=== PATIENT | male | born 1960 | race Caucasian/White ===

== ENCOUNTER 2016-07-12 17:17 | Inpatient (IN) | payer OTHER ==
--- NOTE | ~2016-07-12 | EKG ---
PATIENT: VALERIY PAZ UNIT #: [id number] Ventricular Rate: 88 BPM Atrial Rate: 88 BPM P-R Interval: 126 ms QRS Duration: 130 ms Q-T Interval: 404 ms QTC Calculation(Bezet): 488 ms P [place]: 69 degrees Calculated R [place]: 59 degrees Calculated T [place]: 46 degrees Diagnosis Line: Normal sinus rhythm Diagnosis Line: Right bundle branch block Diagnosis Line: Nonspecific ST and T wave abnormality Diagnosis Line: Abnormal ECG Diagnosis Line: When compared with ECG of 12-JUL-2016 17:46, Diagnosis Line: Nonspecific T wave abnormality, improved in Diagnosis Line: Inferior leads Diagnosis Line: Nonspecific T wave abnormality has replaced Diagnosis Line: inverted T waves in Lateral leads Diagnosis Line: Confirmed by MARNIE REYES MD ([id number]) on Diagnosis Line: 07/16/2016 7:38:48 AM INTERPRETING : SARAH
--- NOTE | ~2016-07-12 | CO ---
Unit #: [id number] #: [id number] Patient: VALERIY PAZ [id number] [address] [place], [place] [address] [id number] I MR#: [id number] NAME: VALERIY PAZ. ROOM: 338 Age: 56 Sex: M Admission Date: 07/12/2016 : 1960 Attending Physician: Travis Christy M.D. Primary Care Physician: Rafa Brooks M.D. 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 Bear. He had a prior cardiac history of coronary artery disease status post drug-eluting stent to OM and RCA in 2011. He had a Lexiscan Cardiolite stress test in 2014 which was negative for ischemia. In addition, he has a history of diabetes mellitus, hypertension, hyperlipidemia, and tobacco abuse, peripheral artery disease, COPD, obstructive sleep apnea and anxiety. He presented to the ER on 07/12/2016 with transient weakness and right facial droop and slurred speech off and on for two days. In the ER his blood pressure was 190/78. A head CT was negative for acute disease. He was found to have left greater than right carotid bruits in addition to slurred speech, right facial droop and a right pronator drift. Bilateral carotid ultrasound showed moderate stenosis on the right and greater than 70% stenosis on the left. An MRA of the head and neck showed 90% to 95% left ICA stenosis and ipsilateral left MCA aneurysm at trifurcation. Vascular surgery has evaluated him. They are awaiting a CTA of the head and neck. They asked us to see him for preop clearance. He denies chest pain, tightness or pressure. He does have intermittent dyspnea on exertion. He denies orthopnea or PND. On July 13, 2016 his troponin was elevated at 0.10. We will check a repeat troponin today. PAST MEDICAL HISTORY 1. Coronary artery disease, status post cardiac cath with drug-eluting stent to OM and RCA in 2011. 2. Hypertension. 3. Hyperlipidemia. 4. Diabetes mellitus. 5. COPD/obstructive sleep apnea with nocturnal O2 use. 6. Peripheral artery disease. 7. GERD. 8. Degenerative joint disease. 9. Tobacco abuse. 10. Echo in 2015 showed LVEF 55% to 60%, trace aortic regurg, mild mitral regurg, mild to moderate left ventricular hypertrophy. 11. Lexiscan Cardiolite in 2015 which was negative. 12. Obesity. PAST SURGICAL HISTORY 1. Cardiac cath in 2011. 2. Pilonidal cyst excision. Unit #: [id number] #: [id number] Patient: VALERIY PAZ 3. Left hand surgery. 4. Right knee arthroscopy with meniscal repair in 2014. 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 He smoked for 29 years and then quit for eight years but started smoking again two years ago, rarely drinks alcohol, denies illicit drug use. FAMILY HISTORY His father had coronary artery disease with a CABG and in his 60s. His mother had cancer but from a sudden MD at the age of 66. ALLERGIES No known drug allergies. HOME MEDICATIONS 1. Diclofenac sodium 75 p.o. b.i.d. 2. Glucophage 500 p.o. b.i.d. 3. Ozzy-Dur 300 mg p.o. daily. 4. Simvastatin 40 mg p.o. daily. 5. Omeprazole 40 mg p.o. daily. 6. Losartan and hydrochlorothiazide 50/12.5 one daily. REVIEW OF SYSTEMS Positive for intermittent right facial droop and right arm weakness and speech slurring. Positive for shortness of air, reflux and arthralgias. Otherwise negative except for what is stated in the HPI. PHYSICAL EXAMINATION VITAL SIGNS: Temperature 98.6, heart rate 90, respiratory rate 20, 96% O2 sat, blood pressure 156/89, height 65 inches, weight 91.5 kg. GENERAL: This is a pleasant 56-year-old male resting in bed in no acute distress. HEENT: Head is atraumatic and normocephalic. Pupils are equal and round. Mucous membranes are moist. NECK: Supple. Trachea is midline. Negative for JVD. LUNGS: Clear to auscultation. Nonlabored respirations. CARDIOVASCULAR: S1, S2. Regular rate and rhythm. Positive systolic ejection murmur. No rubs or gallops. ABDOMEN: Soft, nontender and nondistended. EXTREMITIES: Pulses are palpable. No pedal edema. No cyanosis. NEUROLOGIC: Alert and oriented x3. Answers all questions appropriately and moves all extremities equally and follows commands without difficulty. DIAGNOSTIC STUDIES LABORATORY: Sodium 138, potassium 3.8, chloride 101, BUN 25, creatinine 1, glucose 115, hematocrit 14.6, hematocrit 43.4, white blood cell count 10.4, platelet 217. Point of care troponin on 07/12/2016 less than 0.06. Troponin on 07/13/2016 at 0540 was 0.10. Lipid profile with cholesterol 199, triglycerides 190, LDL 121 and HDL 40. Hemoglobin A1C 6.2 and TSH 2.56. IMAGING: CT of the head was negative for acute stroke. Chest x-ray showed no active disease. Bilateral carotid ultrasound showed right moderate stenosis and left greater than 70% stenosis. Unit #: [id number] #: [id number] Patient: VALERIY PAZ A MRA of the head and neck showed 90% to 95% left ICA origin stenosis and ipsilateral left MCA aneurysm at trifurcation. CARDIOVASCULAR: EKG showed normal sinus rhythm with a ventricular rate of 78. Q wave in lead III and aVF. Echocardiogram showed LVEF 55% to 60%, moderate concentric left ventricular hypertrophy, grade I diastolic dysfunction, tricuspid AV with mild AR, and mild TR with RVSP 20 mmHg. ASSESSMENT 1. Transient ischemic attack. 2. Left carotid stenosis greater than 70% and left ipsilateral middle cerebral artery aneurysm. 3. Coronary artery disease, status post drug-eluting stent to obtuse marginal and right coronary artery in 2011. 4. Hyperlipidemia. 5. Hypertension. 6. Elevated troponin. 7. Anxiety. 8. Tobacco use, one pack per day x30 years. PLAN Because of the patient's borderline troponin and his history of coronary artery disease and his ongoing tobacco abuse, we will do a Lexiscan walking stress test. In addition, we will recheck a troponin, add beta genevieve. I discussed in great detail the importance of smoking cessation. The patient and his expressed concern regarding anxiety and Wellbutrin has been added to help with smoking cessation, depression and anxiety. Thank you for asking us to see this patient. We appreciate the consult. Dictated by... WILBER Washington TD: 07/15/2016 22:53 JOB #: [id number] CONSULTATION REPORT Page 1 of 1 X X CONSULTATION REPORT
--- NOTE | ~2016-07-12 | MR17 ---
[facility] A Service [facility] RADIOLOGY TEXT RESULTS PATIENT: VALERIY PAZ LOCATION: [facility] 338-01 : [birth year] UNIT #: [id number] AGE: [address]: Travis Christy MD SEX: M ORDER DR: [id number] [address] [place] [id number] [facility]. [place], [place] [address] [id number] I MR#: [id number] Acc #: [id number] NAME: VALERIY PAZ. : 1960 SEX: M STUDY DATE/TIME: 07/13/2016 11:23 UNIT: [address] ROOM: [facility] STUDY DESCRIPTION: MR Brain WWo Contrast Attending Physician: Travis Christy M.D. Ordering Physician: Nela Valadez M.D. Primary Care Physician: Rafa Brooks M.D. MRI CENTER REPORT This report is preliminary unless electronic signature is present. EXAM Brain MRI with and without contrast DATE: 07/13/16 HISTORY Right arm numbness and intermittent slurred speech began 2 to 3 days ago. COMPARISON: Head CT 07/12/16 FINDINGS There are several tiny foci of restricted diffusion in the left hemisphere all punctate primarily following along the Watershed zone. All are also apparent on FLAIR and T2 images, but there are no areas of intracranial hemorrhage. There are additional nonspecific white matter changes left slightly greater than right, but normal flow voids are seen in the cerebral vessels. There is no hydrocephalus or extraaxial fluid collection. Bone marrow signal is normal. Post contrast images show no mass or abnormal enhancement. IMPRESSION There are chronic small vessel changes left slightly greater than right, and there are several small punctate foci of diffusion hyperintensity on the left, primarily lining up along the left Watershed zones seen at the margin of the ventricle, periatrial white matter and superior and posterior frontal regions. There is no evidence of gross evidence of vascular occlusion. Both ICAs are patent. There is no hemorrhage or mass or other acute abnormality. Dictated by... [facility] A Service [facility] RADIOLOGY TEXT RESULTS PATIENT: VALERIY PAZ LOCATION: [facility] 338-01 : [birth year] UNIT #: [id number] AGE: [address]: Travis Christy MD SEX: M ORDER DR: Angel Mathews M.D. THIS IS AN ELECTRONICALLY VERIFIED REPORT Angel Mathews M.D. at 07/14/2016 1:19 PM FLAKITA/teddy TD: 07/13/2016 13:35 JOB #: [id number] MRI CENTER REPORT Page 1 of 1 COPY
--- NOTE | ~2016-07-12 | DS ---
Unit #: [id number] #: [id number] Patient: VALERIY PAZ [id number] [address] [place], [place] [address] [id number] I MR#: [id number] NAME: VALERIY PAZ. ROOM: 338 Age: 56 Sex: M Admission Date: 07/12/2016 : 1960 Discharge Date: 07/16/2016 Attending Physician: Travis Christy M.D. Primary Care Physician: Rafa Brooks M.D. DISCHARGE SUMMARY CONSULTANTS 1. Neurology, Dr. Saravia. 2. Cardiology, Dr. Autumn Rodriguez. 3. Vascular surgery, Dr. Raul Díaz. ADMITTING DIAGNOSIS Transient ischemic attack. FURTHER DIAGNOSES 1. Left carotid stenosis greater than 70% and left ipsilateral middle cerebral artery aneurysm. 2. Coronary artery disease status post drug-eluting stent to obtuse marginal and right coronary artery in 2011 and Cardiolite stress test, which was essentially normal. 3. Hypertension. 4. Hyperlipidemia. 5. Anxiety. 6. History of tobacco abuse. HISTORY OF PRESENT ILLNESS The patient is a pleasant 56-year-old man with past medical history of coronary artery disease status post stent placement, history of hyperlipidemia, tobacco abuse, COPD, hypertension. Presented to the emergency room with the chief complaint of right-sided weakness. Patient was in his usual state of health prior up to 2 days prior to the hospitalization. He experienced an episode of slurred speech, and later he started to notice right-sided facial droop, right-sided drift, and for further evaluation, he presented to the hospital. In the hospital he had an initial CT of the head, which was essentially normal. He got an MRI and MRA. The MRI of the brain showed chronic small vessel changes, left greater than right, and several small punctate foci of diffusion hyperintensity on the left, primarily lining up along the left Watershed zones at the margin of the ventricle, periatrial white matter and superior and posterior frontal regions. There is no gross evidence of vascular occlusion. Both ICAs are patent. No hemorrhage. MRA of the head showed there is probably some mild narrowing in the left pre-cavernous carotid but no high grade stenosis. However, there is a 3 x 5 mm laterally- and superiorly-pointing aneurysm at the left MCA trifurcation. No additional aneurysms seen. MRA of the neck was showing 90% to 95% left ICA stenosis by NASCET criteria. Right carotid bifurcation and ICA origin are normal. Right vertebral origin normal. Unit #: [id number] #: [id number] Patient: VALERIY PAZ His lipid panels were checked, and although he was taking his statin, his LDLs were high. He was switched to Lipitor 80 mg and also Zetia is added. Vascular surgery was consulted, recommended for cardiac clearance. Dr. Autumn Rodriguez evaluated. He had a stress test. After the stress test, he was cleared for surgery. Showed moderate sized inferior wall SC with vasiliy-infarct ischemia. EF was around 41%, and cardiology cleared the patient to undergo surgery with [id number] but acceptable risk. Vascular surgery is planning to schedule the patient for surgery on Tuesday. I spoke with the nurse practitioner with vascular surgery team. They mentioned the patient can be discharged home and see them on July 19, 2016, Tuesday, at 5:30 at [facility] for carotid endarterectomy. I did speak with the patient and his . They are agreeable to go home and follow with vascular surgeons in the morning. I requested the patient not to eat anything after midnight of Tuesday and have a light dinner. I explained to him he needs to quit smoking, and we are also giving him a prescription for Wellbutrin and nicotine patches. PHYSICAL EXAMINATION ON THE DAY OF DISCHARGE VITAL SIGNS: Temperature 97.8, pulse rate 76, respiratory rate 16, blood pressure 148/86. GENERAL: The patient is alert and oriented x3, lying in bed, no acute distress. HEENT: Normocephalic, atraumatic. No icterus. PERRLA. Extraocular muscles are intact. NECK: Supple. No JVD. HEART: S1, S2. Regular rate and rhythm. CHEST: Bilateral equal air entry. Clear to auscultation. ABDOMEN: Soft, nontender. EXTREMITIES: No edema. Normal pulses. DISCHARGE MEDICATIONS 1. Aspirin 81 mg daily. 2. Plavix 75 mg daily. 3. Spiriva 18 mcg inhalation 1 puff daily. 4. Bupropion XL 150 mg p.o. daily. 5. Zetia 10 mg daily. 6. Nicotine 21 mg topical daily. 7. Norvasc 5 mg p.o. daily. 8. Metoprolol 25 mg p.o. daily. 9. Lipitor 80 mg p.o. daily. 10. Tylenol p.r.n. 11. Dulera 200/5 mcg inhalation 2 puffs b.i.d. 12. Losartan/HCTZ 50/12.5 mg p.o. daily. 13. Protonix 40 mg p.o. daily. 14. Theophylline 300 mg p.o. daily. FOLLOWUP Patient is instructed to follow with his primary care and with vascular surgery as instructed on Tuesday morning. NOTE: Total time spent in his care - 35 minutes. Unit #: [id number] #: [id number] Patient: VALERIY PAZ Dictated by..Kristen Santiago TD: 07/16/2016 15:33 JOB #: [id number] DISCHARGE SUMMARY Page 1 of 1 X X DISCHARGE SUMMARY
--- NOTE | ~2016-07-12 | EKG ---
PATIENT: VALERIY PAZ UNIT #: [id number] Ventricular Rate: 76 BPM Atrial Rate: 76 BPM P-R Interval: 134 ms QRS Duration: 120 ms Q-T Interval: 424 ms QTC Calculation(Bezet): 477 ms P [place]: 70 degrees Calculated R [place]: 65 degrees Calculated T [place]: 90 degrees Diagnosis Line: Normal sinus rhythm Diagnosis Line: Right bundle branch block Diagnosis Line: Nonspecific ST and T wave abnormality Diagnosis Line: Abnormal ECG Diagnosis Line: When compared with ECG of 15-JUL-2016 09:14, Diagnosis Line: Nonspecific T wave abnormality, worse in Inferior Diagnosis Line: leads Diagnosis Line: Nonspecific T wave abnormality now evident in Diagnosis Line: Anterior leads Diagnosis Line: Confirmed by MARNIE REYES MD ([id number]) on Diagnosis Line: 07/17/2016 1:50:28 PM INTERPRETING MD: SARAH
--- NOTE | ~2016-07-12 | ST ---
Unit #: [id number] #: [id number] Patient: VALERIY PAZ [id number] [facility]. [address] [address] [id number] I MR#: [id number] NAME: VALERIY PAZ. : 1960 SEX: M STUDY DATE/TIME: 07/15/2016 UNIT: C3A PCU ROOM: [facility] STUDY DESCRIPTION: Attending Physician: Travis Christy M.D. Primary Care Physician: Rafa Brooks M.D. CARDIOLOGY REPORT EXAM EKG portion of Lexiscan Cardiolite stress test. REASON FOR EXAM Preoperative clearance. DISCUSSION Baseline EKG reveals sinus rhythm with a ventricular rate of 92 beats per minute, 0.[address] depression noted in the inferior and anterolateral leads. A total of 0.4 mg of Lexiscan was injected per protocol followed by Cardiolite. Patient had some shortness of breath and tightness but no specific chest pain. There were no sustained arrhythmias but he did have rare to occasional PVCs. There were no worsening ST or T wave changes from baseline. The patient's maximal heart rate was 113 beats per minute with a maximum blood pressure of 184/93 mmHg. The test was stopped due to protocol completion. Patient has not received his oral medications today and his antihypertensives will be given. IMPRESSION 1. Nondiagnostic EKG portion of Lexiscan Cardiolite stress test. 2. There are no complaints of chest pain. 3. There were rare to occasional PVCs noted. 4. There was baseline ST depression which was unchanged. 5. Please correlate with Cardiolite images. Dictated by... Rolua Jonas APRN for Kristen Dela Cruz TD: 07/15/2016 10:46 JOB #: [id number] Unit #: [id number] #: [id number] Patient: VALERIY PAZ CARDIOLOGY REPORT Page 1 of 1 X CARDIOLOGY REPORT
--- NOTE | ~2016-07-12 | CO ---
Unit #: [id number] #: [id number] Patient: VALERIY ZHU [id number] [address] [place], [place] [address] [id number] I MR#: [id number] NAME: VALERIY ZHU ROOM: 338 Age: 56 Sex: M Admission Date: 07/12/2016 : 1960 Attending Physician: Travis Christy M.D. Primary Care Physician: Rafa Brooks M.D. CONSULTATION REPORT This is Dr. Emily Saravia dictating. CHIEF COMPLAINT Intermittent right-sided weakness and slurred speech. HISTORY OF PRESENT ILLNESS Mr. Zhu is a 56-year-old gentleman with a history of coronary artery disease, hypertension, hyperlipidemia, gastroesophageal reflux disease, arthritis, and asthma, who was admitted for intermittent right-sided weakness, numbness, and slurred speech over the last 24 hours. The patient reports that the symptoms would come and go. At this time, he is asymptomatic, but earlier today, he was unable to lift his right arm. REVIEW OF SYSTEMS GENERAL: Positive for overall decline. SKIN: Negative. HEENT: Negative. PULMONARY: Positive for shortness of air, wheezing. CARDIOVASCULAR: Negative. GI: Positive for reflux. : Negative. MUSCULOSKELETAL: Positive for arthralgias. NEUROLOGIC: Positive for intermittent right-sided weakness, numbness, and slurred speech. PSYCHIATRIC: Negative. PAST MEDICAL HISTORY As above. SOCIAL HISTORY Positive for pack per day of tobacco. Denies alcohol or illicit drugs. FAMILY HISTORY Positive for father having coronary artery disease, but negative for stroke, PHYSICAL EXAMINATION GENERAL: He is of obese appearance. HEART: His heart sounds are regular. NECK: He does have a left carotid bruit. VITAL SIGNS: His blood pressure is 190/78, pulse is 60, respirations 16, temperature 98.1. NEUROLOGIC: He is alert and oriented x3 with intact language fluency and comprehension. Fund of knowledge is average. Memory and attention span Unit #: [id number] #: [id number] Patient: VALERIY ZHU are normal. Visual koroma are full. There is no papilledema. Extraocular muscles are intact. Pupils are equal, round, reactive to light. Facial sensation and movements are symmetric. Hearing to conversation. Speech is normal. Palate raised symmetrically. Trapezius full strength bilaterally. Tongue protrudes midline. There is no dysarthria or dysphagia. He has full strength in his extremities. Muscle tone and bulk are normal. There are no involuntary movements. There are no sensory deficits. Gtshtt-ci-ioii coordination is intact. Gait is within normal limits and reflexes are 2+ symmetrically. DIAGNOSTICS STUDIES IMAGING STUDIES: I have personally reviewed his head CT and it is negative for any acute abnormalities. IMPRESSION AND PLAN In summary, Mr. Zhu has had intermittent right-sided weakness, numbness, and slurred speech. The symptoms are consistent with transient ischemic attacks. I will therefore load him with Plavix 600 mg x1 followed by 75 mg daily. We will also continue his aspirin 81 mg daily and change his Zocor to Lipitor 80 mg daily. For further testing, we will check MRI of the brain and MRA of the brain and carotids and a 2D echocardiogram. Further recommendations will be as per test results. Dictated by... Kristen Zhang/luan TD: 07/13/2016 16:23 JOB #: [id number] CONSULTATION REPORT Page 1 of 1 X Emily Saravia MD X CONSULTATION REPORT
--- NOTE | ~2016-07-12 | TH ---
Unit #: [id number] #: [id number] Patient: VALERIY PAZ [id number] [address] [address] [id number] I MR#: [id number] NAME: VALERIY PAZ. : 1960 SEX: M STUDY DATE/TIME: 07/15/2016 UNIT: C3A PCU ROOM: [facility] STUDY DESCRIPTION: Cardiolite study Attending Physician: Travis Christy M.D. Primary Care Physician: Rafa Brooks M.D. CARDIOLOGY REPORT EXAM Lexiscan Cardiolite stress test nuclear portion. PROCEDURE Using Tc-99m labeled Cardiolite, rest and stress SPECT images were obtained. Multiple SPECT images were obtained in various views including horizontal and vertical long axis and short axis views of the left ventricle. Images were obtained by gated SPECT method. The patient was administered 9.45 mCi of Cardiolite at rest. The patient was administered 30.3 mCi of Cardiolite after Lexiscan infusion was completed. On the stress images, there is a medium sized area of severe decreased tracer uptake activity inferiorly. The rest images show a slightly smaller area of severe decreased tracer uptake activity inferiorly. Comparing rest and stress images, there is a medium sized area of inferior wall myocardial infarction with some vasiliy-infarct ischemia. The left ventricular ejection fraction is calculated to be 41%. There is inferior wall hypokinesis seen. CONCLUSION 1. Suspicion for medium sized area of inferior wall myocardial infarction with some vasiliy-infarct ischemia. 2. The left ventricular ejection fraction is calculated to be 41%. 3. There is inferior wall hypokinesis seen. 4. Suspicion for mild ischemic cardiomyopathy with medium sized inferior wall myocardial infarction with some vasiliy-infarct ischemia. Dictated by... Kristen Dela Cruz TD: 07/15/2016 13:08 JOB #: [id number] Unit #: [id number] #: [id number] Patient: VALERIY PAZ CARDIOLOGY REPORT Page 1 of 1 X Autumn Rodriguez MD <ELECTRONICALLY SIGNED> 09/18/16 1428 CARDIOLOGY REPORT
--- NOTE | ~2016-07-12 | US37 ---
[facility] A Service of [facility] & [facility] RADIOLOGY TEXT RESULTS PATIENT: VALERIY PAZ LOCATION: [facility] 338-01 : 58 UNIT #: [id number] AGE: [address]: Travis Christy MD SEX: M ORDER DR: [id number] [facility] [address] [place], [place] [address] [id number] MR#: [id number] Acc #: [id number] NAME: VALERIY PAZ. : 1960 SEX: M STUDY DATE/TIME: 07/14/2016 9:59 UNIT: [address] ROOM: [facility] STUDY DESCRIPTION: US Carotid W/Doppler Bilateral Attending Physician: Travis Christy M.D. Ordering Physician: Travis Christy M.D. Primary Care Physician: Rafa Brooks M.D. MEDICAL IMAGING REPORT This report is preliminary unless electronic signature is present EXAM Carotid duplex scan, 07/14/2016 HISTORY Right-sided weakness. Slurred speech. Hypertension. FINDINGS The right common carotid artery has a small amount of dense plaque. There is heterogeneous dense plaque in the right carotid bulb which extends up into the proximal internal and external carotid arteries. Peak systolic velocity in the mid right internal carotid artery is 157 cm/sec with an end-diastolic velocity of 37 cm/sec. The ICA/CCA ratio on the right is 1.4. Peak systolic velocity in the right external carotid artery is 136 cm/sec. The right vertebral artery is patent with antegrade flow. The left common carotid artery has a small amount of dense plaque. There is a large amount of heterogeneous dense plaque in the left carotid bulb which extends up into the proximal internal and external carotid arteries. Peak systolic velocity in the mid left internal carotid artery is 690 cm/sec with an end-diastolic velocity of 379 cm/sec. The ICA/CCA ratio on the left is 13.3. Peak systolic velocity in the left external carotid artery is 503 cm/sec. The left vertebral artery is patent with antegrade flow. IMPRESSION Moderate stenosis (50% to 69%) of the right internal carotid artery. Severe stenosis (greater than or equal to 70%) of the left internal carotid artery. Significant stenosis of the external carotid arteries on both sides. Patent vertebral arteries bilaterally with antegrade flow. [facility] A Service of [facility] RADIOLOGY TEXT RESULTS PATIENT: VALERIY PAZ LOCATION: [place] [address] : [birth year] UNIT #: [id number] AGE: [address]: Travis Christy MD SEX: M ORDER DR: Dictated by... Jamie Hall M.D. THIS IS AN ELECTRONICALLY VERIFIED REPORT Jamie Hall M.D. at 07/15/2016 7:32 AM Kellen TD: 07/14/2016 13:18 JOB #: [id number] MEDICAL IMAGING REPORT Page 1 of 1 COPY
--- NOTE | ~2016-07-12 | EKG ---
PATIENT: VALERIY PAZ UNIT #: [id number] Ventricular Rate: 81 BPM Atrial Rate: 81 BPM P-R Interval: 130 ms QRS Duration: 126 ms Q-T Interval: 390 ms QTC Calculation(Bezet): 453 ms P [place]: 71 degrees Calculated R [place]: 70 degrees Calculated T [place]: 19 degrees Diagnosis Line: Normal sinus rhythm Diagnosis Line: Right bundle branch block Diagnosis Line: Possible Inferior infarct , age undetermined Diagnosis Line: Abnormal ECG Diagnosis Line: When compared with ECG of 04-JUN-2012 21:43, Diagnosis Line: Right bundle branch block is now Present Diagnosis Line: Borderline criteria for Inferior infarct are now Diagnosis Line: Present Diagnosis Line: Confirmed by PATRICK FRANCISCO MD ([id number]) on Diagnosis Line: 07/13/2016 1:31:19 PM INTERPRETING MD: NOLAN PAREKH
--- NOTE | ~2016-07-12 | HP ---
Unit #: [id number] #: [id number] Patient: VALERIY PAZ [id number] [address] [place], [place] [address] [id number] I MR#: [id number] NAME: VALERIY PAZ. ROOM: [address]70[address] Age: 56 Sex: M Admission Date: 07/12/2016 : 1960 Attending Physician: Daylin Voss M.D. Primary Care Physician: Rafa Brooks M.D. HISTORY AND PHYSICAL CHIEF COMPLAINT Left hemispheric TIA versus CVA. HISTORY OF PRESENT ILLNESS This pleasant 56-year-old male with DJD, AODM, COPD, CAD and hypertension, is admitted for right-sided weakness. The patient was in his usual state of health until two days prior to admission when he experienced an episode of slurred speech. Also had an episode of right leg transient weakness. At about 3:30 this afternoon, he developed right arm weakness and a right facial droop along with mild slurring of speech. He presented to this emergency department at about 5:15 p.m., and symptoms are currently improving. He was seen by Neurology who has ordered a stroke workup, along with starting loading dose Plavix and some aspirin. The patient is not taking aspirin at home. Initial blood pressure was 190/78 which has improved. On examination, the patient does have left greater than right carotid bruits, slightly slurred speech, slight right lower facial droop, and a right pronator drift. Head CT is read as negative. As an aside, patient has been experiencing some recent increased shortness of breath, but did see his bi technical lead last week and I will obtain his old EKG. PAST MEDICAL HISTORY 1. DJD. 2. AODM times several years. 3. COPD with ongoing tobacco use. 4. GERD. 5. Hypertension. 6. CAD, status post PCI and stent times [address] Bear in 2009 without recurrent angina. 7. Pilonidal cyst excised. 8. Left hand surgery. 9. Right knee surgery. ALLERGIES No known drug allergies. HOME MEDICATIONS 1. Diclofenac 75 mg b.i.d. 2. Metformin 500 mg b.i.d. 3. Theophylline 300 mg daily. 4. Zocor 40 mg daily. 5. Omeprazole 40 mg daily. 6. Losartan/hydrochlorothiazide 50/12.5 mg daily. Unit #: [id number] #: [id number] Patient: VALERIY PAZ 7. Symbicort. 8. Spiriva. 9. Albuterol p.r.n. SOCIAL HISTORY The patient lives with his . He smokes one pack per day of tobacco. Seldom drinks alcohol. Does not use illicit drugs. FAMILY HISTORY CAD and malignancy. REVIEW OF SYSTEMS Notable for right lower facial droop, slurred speech, intermittent right side weakness, tobacco, DJD, AODM, COPD, GERD, hypertension, CAD, and some shortness of breath and above-mentioned surgeries. All other systems were reviewed and are negative. PHYSICAL EXAMINATION VITAL SIGNS: Temperature 98.1, pulse 90, respirations 16, blood pressure 190/78 which has improved to a blood pressure of 169/101, O2 saturation 98% on room air. GENERAL: Pleasant, obese 56-year-old male currently in no acute distress. HEENT: Right pupil is slightly larger than the left but the patient had his eyes dilated earlier today. Pharynx benign. Dentures are in place. He has a very slight right lower facial droop. NECK: Supple without adenopathy or thyromegaly but he has left greater than right carotid bruits on exam. CHEST: Clear. HEART: Normal S1, S2 with a vary soft systolic murmur best heard at the apex. ABDOMEN: Bowel sounds are present. Mild hepatomegaly noted on exam. Nontender, no masses. EXTREMITIES: Without edema. Pedal pulses are present but diminished. No ulcers on the feet. NEUROLOGIC: Awake, alert, oriented times 3. His cranial nerves are intact except for a slight right lower facial droop and right pupil dilated more than the left but patient did have an exam today requiring dilation of his pupils. His speech is fluent. He has +5/5 strength throughout but does have a right pronator drift. Normal rapid alternating movements. Normal xovyem-ly-oemr. DIAGNOSTIC STUDIES LABORATORY: Hematocrit 42, white blood cell count 10.7, normal platelet count. Normal coags. SMA-12 glucose 126, GFR is 83. Troponin is 0.05 and 0.06. Urinalysis 2+ protein, 10-25 wbc's, no bacteria. IMAGING: Head CT no acute disease. Chest x-ray no acute disease. CARDIOVASCULAR: EKG shows a normal sinus rhythm rate 80 with T-wave abnormalities noted in V5 and V6. ASSESSMENT 1. Transient ischemic attack versus cerebrovascular accident. 2. Left greater than right carotid bruits. 3. Adult-onset diabetes mellitus. 4. Tobacco use. Unit #: [id number] #: [id number] Patient: VALERIY PAZ 5. Degenerative joint disease. 6. Chronic obstructive pulmonary disease. 7. Coronary artery disease, status post PCI and stent. 8. Pyuria noted on exam. PLAN 1. Appreciate neurologist's consultation. Stroke workup has been ordered along with aspirin and loading dose of Plavix. 2. SCDs for DVT prophylaxis. 3. Hold metformin. Will place on sliding scale insulin for now. 4. Neuro checks. 5. Obtain prior EKG and repeat cardiac enzymes along with labs in the morning. 6. Continue home medications. 7. Smoking cessation counseling. 8. One dose of antibiotics pending urine culture. 9. Echo, MRI, MRA, lipid profile ordered by neurology. Dictated by Daylin Voss M.D. TABITHA/marcelino TD: 07/12/2016 21:23 JOB #: [id number] HISTORY AND PHYSICAL Page 1 of 1 X Daylin Voss MD X HISTORY AND PHYSICAL
--- NOTE | ~2016-07-12 | CR72 ---
[facility] A Service of [facility] & [facility] RADIOLOGY TEXT RESULTS PATIENT: VALERIY PAZ LOCATION: [facility] 338-01 : 58 UNIT #: [id number] AGE: [address]: Travis Christy MD SEX: M ORDER DR: [id number] [facility] [address] [place], [place] [address] [id number] I MR#: [id number] Acc #: [id number] NAME: VALERIY PAZ. : 1960 SEX: M STUDY DATE/TIME: 07/12/2016 19:13 UNIT: [address] ROOM: [facility] STUDY DESCRIPTION: CR Chest Single View Portable Attending Physician: Daylin Voss M.D. Ordering Physician: Armen Seo D.O. Primary Care Physician: Rafa Brooks M.D. MEDICAL IMAGING REPORT This report is preliminary unless electronic signature is present EXAM Chest x-ray, 07/12/2016 HISTORY 56-year-old male in the ED complaining of 1-day history of intermittent right arm numbness and slurred speech. 30-plus year smoker. History of coronary artery stents and diabetes. TECHNIQUE AP upright chest x-ray. FINDINGS Heart size and pulmonary vascularity are within normal limits. The lungs appear clear. No visible pulmonary infiltrate or pleural effusion. No change since 06/04/2012. IMPRESSION No active disease. No change since 06/04/2012. Dictated by... Heladio Pompa M.D. THIS IS AN ELECTRONICALLY VERIFIED REPORT Heladio Pompa M.D. at 07/13/2016 10:15 AM DANIELA/zeb TD: 07/13/2016 00:31 JOB #: [id number] MEDICAL IMAGING REPORT Page 1 of 1 COPY
--- NOTE | ~2016-07-12 | CT71 ---
[facility] A Service [facility] RADIOLOGY TEXT RESULTS PATIENT: VALERIY PAZ LOCATION: [facility] 338 : 58 UNIT #: [id number] AGE: [address]: Travis Christy MD SEX: M ORDER DR: [id number] [facility] [address] [place], [place] [address] [id number] I MR#: [id number] Acc #: [id number] NAME: VALERIY PAZ. : 1960 SEX: M STUDY DATE/TIME: 07/12/2016 18:01 UNIT: [address] ROOM: [facility] STUDY DESCRIPTION: CT Head Wo Contrast Attending Physician: Daylin Voss M.D. Ordering Physician: Armen Seo D.O. Primary Care Physician: Rafa Brooks M.D. MEDICAL IMAGING REPORT This report is preliminary unless electronic signature is present EXAM CT head without contrast INDICATION Right arm numbness, slurred speech off and on since yesterday. TECHNIQUE CT head was performed without contrast. Correlation is made with MRI of the brain from 12/07/2006. This CT exam was performed with one or more of the following radiation dose reduction techniques: automatic exposure control, adjustment of mA and/or kV according to patient size, and iterative reconstruction. FINDINGS There is no evidence of intracranial hemorrhage, acute cortical-based infarction, focal mass lesion, or hydrocephalus. The included orbits and paranasal sinuses are unremarkable. Carotid siphon calcifications are present. Vertebral artery calcifications are present. The bone windows are unremarkable. IMPRESSION No acute intracranial abnormality. Dictated by... Dago Peralta M.D. THIS IS AN ELECTRONICALLY VERIFIED REPORT Dago Peralta M.D. at 07/14/2016 7:25 AM JEANIE/sonia [facility] A Service [facility] RADIOLOGY TEXT RESULTS PATIENT: VALERIY PAZ LOCATION: [facility] 338 : 58 UNIT #: [id number] AGE: [address]: Travis Christy MD SEX: M ORDER DR: TD: 07/13/2016 00:00 JOB #: [id number] MEDICAL IMAGING REPORT Page 1 of 1 COPY
--- NOTE | ~2016-07-12 | MR122 ---
[facility] A Service of [facility] RADIOLOGY TEXT RESULTS PATIENT: VALERIY PAZ LOCATION: [facility] 338-01 : 58 UNIT #: [id number] AGE: [address]: Travis Christy MD SEX: M ORDER DR: [id number] [place] [id number] [facility] [place], [place] [address] [id number] I MR#: [id number] Acc #: [id number] NAME: VALERIY PAZ. : 1960 SEX: M STUDY DATE/TIME: 07/13/2016 11:43 UNIT: [address] ROOM: [facility] STUDY DESCRIPTION: MR MRA Head Wo Contrast Attending Physician: Travis Christy M.D. Ordering Physician: Nela Valadez M.D. Primary Care Physician: Rafa Brooks M.D. MRI CENTER REPORT This report is preliminary unless electronic signature is present. EXAM Head MRA without contrast 07/13/2016 PROCEDURE Axial oqxd-ce-[id number] head MRA with 3-dimensional reformats. COMPARISON Head MRI same date HISTORY Episodic slurred speech and right arm numbness for several days with small areas of acute ischemia on head MRA. FINDINGS There is symmetric overall intracranial vascularity, without flow-limiting stenosis, but there is a fairly prominent laterally and superiorly pointing aneurysm at the left MCA trifurcation. The aneurysm measures about 5 mm in maximal dimension, though may be slightly broad-necked. No other aneurysms are seen. Again, there is no flow-limiting stenosis and the [place] appears complete. IMPRESSION Complete [place]. No branch vessel occlusion. There is probably some mild narrowing in the left pre-cavernous carotid, but no high grade stenosis. However, there is an approximately 3 x 5 mm laterally and superiorly pointing aneurysm at the left MCA trifurcation, possibly slightly broad-necked, but obviously will be better depicted angiographically. No additional aneurysms are seen. Dictated by... [facility] A Service [facility] RADIOLOGY TEXT RESULTS PATIENT: VALERIY PAZ LOCATION: [facility] 338-01 : 58 UNIT #: [id number] AGE: [address]: Travis Christy MD SEX: M ORDER DR: Angel Mathews M.D. THIS IS AN ELECTRONICALLY VERIFIED REPORT Angel Mathews M.D. at 07/14/2016 1:19 PM TEV/to TD: 07/13/2016 13:35 JOB #: [id number] MRI CENTER REPORT Page 1 of 1 COPY
--- NOTE | ~2016-07-12 | MR133 ---
[facility] A Service of [facility] & [facility] RADIOLOGY TEXT RESULTS PATIENT: VALERIY PAZ LOCATION: [facility] 338-01 : 58 UNIT #: [id number] AGE: [address]: Travis Christy MD SEX: M ORDER DR: [id number] [facility] [address] [place], [place] [address] [id number] I MR#: [id number] Acc #: [id number] NAME: VALERIY PAZ. : 1960 SEX: M STUDY DATE/TIME: 07/13/2016 11:54 UNIT: [address] ROOM: [facility] STUDY DESCRIPTION: MR MRA Neck WWo Contrast Attending Physician: Travis Christy M.D. Ordering Physician: Nela Valadez M.D. Primary Care Physician: Rafa Brooks M.D. MRI CENTER REPORT This report is preliminary unless electronic signature is present. EXAM Neck MRA, 07/13/2016 PROCEDURE Axial xfhy-ta-ltjaif neck MRA and coronally acquired gadolinium bolus neck MRA with three dimensional reformats. HISTORY Episodic right arm numbness with slurred speech for the last 2-3 days. FINDINGS There is mild narrowing at the left common carotid origin. The innominate origin, and right common carotid origin and right vertebral origin are normal. There may be moderate left vertebral origin stenosis. The right vertebral is dominant throughout the neck. There is a 95% left ICA origin stenosis by NASCET criteria. There is moderate external carotid origin stenosis as well. The right ICA is widely patent at its origin with 0% stenosis by NASCET criteria. IMPRESSION 1. Probably 90% to 95% left ICA origin stenosis by NASCET criteria. This is combined with about probably mild left common carotid origin stenosis. The patient has a ipsilateral left MCA trifurcation aneurysm. 2. The right carotid bifurcation and ICA origin are normal. 3. The right vertebral origin is normal. There may be moderate left vertebral origin stenosis though that may be better depicted angiographically. 4. Results discussed with Dr. Valadez on the at about 1 p.m. STAT * [facility] A Service of [facility] & [facility] RADIOLOGY TEXT RESULTS PATIENT: VALERIY PAZ LOCATION: [place] [address] : 58 UNIT #: [id number] AGE: [address]: Travis Christy MD SEX: M ORDER DR: Dictated by... Angel Mathews M.D. THIS IS AN ELECTRONICALLY VERIFIED REPORT Angel Mathews M.D. at 07/13/2016 2:02 PM FLAKITA/shaan TD: 07/13/2016 13:00 JOB #: [id number] MRI CENTER REPORT Page 1 of 1 COPY
--- NOTE | ~2016-07-12 | CO ---
Unit #: [id number] #: [id number] Patient: VALERIY PAZ [id number] [address] [address] [id number] I MR#: [id number] NAME: VALERIY PAZ ROOM: 338 Age: 56 Sex: M Admission Date: 07/12/2016 : 1960 Attending Physician: Travis Christy M.D. Primary Care Physician: Rafa Brooks M.D. Consultation Date: 07/14/2016 CONSULTATION REPORT REASON FOR CONSULTATION Left internal carotid artery stenosis with a left MCA CVA and aneurysm. HISTORY OF PRESENT ILLNESS The patient is a 56-year-old male who was presented two days ago with an episode of slurred speech and right leg weakness. His right arm weakness and right leg weakness with a slight right facial droop along with mild slurring of speech presented on Tuesday which brought him to the emergency room at approximately 5:15 p.m. His symptoms have since resolved since admission. His symptoms lasted for a period of three days off and on. It was until the third day of symptoms that he finally decided to come to the emergency room. His symptoms were relieved by anything in particular. The patient denies any history of any previous stroke, TIA, or any right-sided weakness or history of these episodes prior to this weekend. PAST MEDICAL HISTORY His past medical history includes: 1. DJD. 2. ADDM times several years. 3. COPD with ongoing tobacco use. 4. Gastric reflux disease. 5. Hypertension. 6. CAD. He has a history of status post PCI and stent x2 by Dr. Bear in 2009. 7. Pilonidal cyst. 8. Left hand surgery. 9. Right knee surgery. ALLERGIES He has no known drug allergies. HOME MEDICATIONS His home medications: 1. Diclofenac 75 mg b.i.d. 2. Metformin 500 mg b.i.d. 3. Theophylline 300 mg daily. 4. Zocor 40 mg daily. 5. Omeprazole 40 mg daily. 6. Losartan and hydrochlorothiazide 50/12.5 mg daily. 7. Symbicort. 8. Spiriva. 9. Albuterol p.r.n. Unit #: [id number] #: [id number] Patient: VALERIY PAZ SOCIAL HISTORY He lives with his . He smokes one pack per day of tobacco for the past two years. He denies drinking alcohol. He does not use illicit drugs. FAMILY HISTORY His mother is with a history of MA and esophageal cancer and coronary artery disease. His father is with CAD, hypertension, pacemaker. Both denied history of stroke. REVIEW OF SYMPTOMS CONSTITUTIONAL: No fever, chills, or sweats. EYES: No recent visual problems. EARS, NOSE, MOUTH AND THROAT: No ear pain, nasal congestion, or sore throat. RESPIRATORY: No shortness of breath or cough. CARDIOVASCULAR: Denies chest pain, palpitations and syncope. GI: No nausea, vomiting, or diarrhea. GENITOURINARY: No hematuria. HEMATOLOGY/LYMPHATIC: Negative for bruising, no swollen lymph glands. ENDOCRINE: No excessive thirst, excessive hunger. MUSCULOSKELETAL: No back pain, neck pain, joint pain, muscle pain, decreased range of motion. INTEGUMENTARY: No sores or nonhealing wounds. 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 PSYCHIATRIC: No anxiety, depression, or suicidal thoughts or ideations. PHYSICAL EXAMINATION VITAL SIGNS: Temperature is 98.1, pulse 102, respirations 20, blood pressure 157/91, O2 sats 98% on room air. GENERAL APPEARANCE: He is well developed, well nourished, in no acute distress. HEAD/EARS/EYES/NOSE/THROAT: Normocephalic. Pupils equal, round, reactive to light. NECK: Supple, nontender without lymphadenopathy, masses, or thyromegaly. Positive carotid bruits; on the left is greater than right noted. CARDIAC: Regular rate and rhythm. No murmurs. No peripheral edema, cyanosis, or pallor. LUNGS: Clear to auscultation bilaterally. ABDOMIN: Positive bowel sounds. Soft, nontender, no distention. No masses or hepatomegaly. MUSCULOSKELETAL: Moves all extremities, full range of motion. Normal muscular development. EXTREMITIES: Upper extremities: No deformity noted. No edema. Lower extremities: No deformity noted. No edema. VASCULAR: Palpable radial pulses bilaterally. Femoral pulses palpable bilaterally. Popliteal, dorsalis pedis, and posterior tibialis pulses palpable bilaterally. INTEGUMENTARY: Warm and dry. No sores or nonhealing wounds. No hemosiderin deposition. NEUROLOGICAL: Cranial nerves II through XII grossly intact. Normal strength and sensation bilaterally. 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 PSYCHIATRIC: Oriented to person, place, and time. Demonstrates good judgment and reason. DIAGNOSTIC STUDIES IMAGING: Bilateral carotid ultrasound performed today on 07/14/16 Unit #: [id number] #: [id number] Patient: VALERIY PAZ demonstrates moderate stenosis of the right internal carotid artery with severe stenosis, greater than 70%, of the left internal carotid artery. There is significant stenosis of the external carotid arteries on both sides. Patent vertebral arteries bilaterally with antegrade flow. An MRA of the head and neck on 07/13/2016 demonstrates probable 90% to 95% left ICA origin stenosis per NASCET criteria. The patient has an ipsilateral left MCA trifurcation aneurysm. The right carotid bifurcation and ICA origin are normal. The right vertebral origin is normal. There may be moderate left vertebral origin stenosis though that may be better depicted angiographically. Results discussed with Dr. Valadez on the and referred to as for further evaluation. LABORATORY: Glucose 115, BUN 25, creatinine 1.0, eGFR 83.2, sodium 138, potassium 3.8, chloride 101, CO2 25. PT 10.2, INR 1.0, PTT 24.7. White blood cell count is 10.4, hemoglobin 14.6, hematocrit 43.4, platelets 217. 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 PLAN 1. The plan will be to consult Interventional Radiology in regard to the left MCA aneurysm. We would appreciate all input in regard to would it be save versus unsafe to proceed with the left carotid endarterectomy prior to repair of the aneurysm or would this be a low risk? 2. CTA of the head and neck to specify the degree of stenosis on bilateral carotid arteries. 3. Cardiac clearance is required for further evaluation per left carotid endarterectomy. Thank you for allowing us to participate in this patient's care. Dictated by... Francy Martinez APRN for Kristen Rodriguez/yola TD: 07/14/2016 22:30 JOB #: [id number] CONSULTATION REPORT Page 1 of 1 X X CONSULTATION REPORT
[~2016-07-12 17:17] MED LIST: ALBUTEROL17 GM INH; ASPIRIN81 M1 PO; B12; CERTAGEN PO; COZAAR; METFORMIN HCL500 M1; PAXIL PO; PLAVIX PO; PRILOSEC; ROBITUSSIN A-C S5 ML PO; SIMVASTATIN40 MG PO; ZITHROMAX PO
[2016-07-12 17:52] LABS: BASOPHIL# 0.2 X10e3 (0-0.3); BASOPHIL% 1.6 % (0-2.5); EOSINOPHIL# 0.3 X10e3 (0-0.7); EOSINOPHIL% 2.5 % (0.0-7.0); LYMPHOCYTE# 2.2 X10e3 (1.0-3.5); LYMPHOCYTE% 20.2 % (17.0-45.0); MEAN CELL VOLUME 86.3 FL (83-96); MEAN CORPUSCULAR HEMOGLOBIN 28.8 PG (28-34); MEAN CORPUSCULAR HGB CONC 33.3 g/dL (30-36); MEAN PLATELET VOLUME 9.2 FL (6.5-11.5); MONOCYTE# 0.7 X10e3 (0-1.0); MONOCYTE% 6.9 % (3.0-12.0); NEUTROPHIL# 7.3 X10e3 (1.5-7.1); NEUTROPHIL% 68.8 % (40-75); PLATELET COUNT 216 X10e3 (140-420); RED BLOOD COUNT 4.87 X10e (3.90-5.60); RED CELL DISTRIBUTION WIDTH 13.9 % (11.0-15.5); WHITE BLOOD COUNT 10.7 X10e3 (4.0-10.5)
[2016-07-12 18:03] LABS: POC - CKMB 3.4 ng/mL (0.0-7.9); POC - TROPONIN 0.05 ng/mL (<=0.05)
[2016-07-12 18:06] LABS: PARTIAL THROMBOPLASTIN TIME 24.7 SECONDS (23.5-31.3); PROTHROMBIN TIME (PATIENT) 10.2 SECONDS (9.6-11.5)
[2016-07-12 18:08] LABS: DIFF IND NO
[2016-07-12 18:20] LABS: ALBUMIN SERUM 4.2 g/dL (3.5-5.0); BILIRUBIN, DIRECT 0.1 mg/dL (0.0-0.2); BILIRUBIN,INDIRECT 0.5 mg/dL (0.0-0.9); BILIRUBIN,TOTAL 0.6 mg/dL (0.2-2.0); CALCIUM SERUM 9.2 mg/dL (8.4-10.2); GLOM FILT RATE Estimated 83.2 mL/min (>60); POTASSIUM 3.7 mmol/L (3.5-5.1); PROTEIN TOTAL SERUM 7.5 g/dL (6.0-8.3)
[2016-07-12 18:28] LABS: URINE SOURCE CLEAN CATCH
[2016-07-12 18:33] LABS: URINE APPEARANCE CLEAR; URINE BILIRUBIN NEG (NEG); URINE BLOOD NEG (NEG); URINE COLOR DK YELLOW; URINE GLUCOSE NEG (NEG); URINE KETONE NEG (NEG); URINE LEUKOCYTE ESTERASE NEG (NEG); URINE NITRATE NEG (NEG); URINE PROTEIN 2+ (NEG); URINE SPECIFIC GRAVITY 1.021 (1.003-1.035); URINE UROBILINOGEN 0.2 MG/DL (NEG)
[2016-07-12 18:34] LABS: CULTURE INDICATED? YES; URBCS1 AUWI 0-2 /[HPF] (0-2); URINE BACTERIA AUWI NEG (NEGATIVE); URINE SQUAMOUS EPITHELIAL CELL NONE SEEN /[HPF]
[2016-07-12 19:40] LABS: POC - CKMB 4.1 ng/mL (0.0-7.9); POC - TROPONIN 0.06 ng/mL (<=0.05)
[2016-07-12] MEDS ORDERED: THEO-DUR300 MG DOB (20:06)
[2016-07-12] MEDS ORDERED: VOLTAREN75 MG PO (20:06)
[2016-07-12] MEDS ORDERED: GLUCOPHAGE500 MG PO (20:06)
[2016-07-12] MEDS ORDERED: SIMVASTATIN40 MG PO (20:07)
[2016-07-12] MEDS ORDERED: OMEPRAZOLE40 M1 PO (20:07)
[2016-07-12] MEDS ORDERED: LOSARTAN-HCTZ1 EACH PO (20:07)
[2016-07-13 06:10] LABS: HEMATOCRIT 43.1 % (38.0-50.0); HEMOGLOBIN 14.5 gm/dL (13.0-16.0); MEAN CELL VOLUME 85.6 FL (83-96); MEAN CORPUSCULAR HEMOGLOBIN 28.9 PG (28-34); MEAN CORPUSCULAR HGB CONC 33.7 g/dL (30-36); MEAN PLATELET VOLUME 9.1 FL (6.5-11.5); RED BLOOD COUNT 5.03 X10e (3.90-5.60); RED CELL DISTRIBUTION WIDTH 14.1 % (11.0-15.5); WHITE BLOOD COUNT 8.3 X10e3 (4.0-10.5)
[2016-07-13 06:50] LABS: ALBUMIN SERUM 3.9 g/dL (3.5-5.0); BILIRUBIN,TOTAL 0.6 mg/dL (0.2-2.0); BUN/CREATININE RATIO 24.44; CALCIUM SERUM 9.5 mg/dL (8.4-10.2); CREATININE SERUM 0.9 mg/dL (0.6-1.4); GLOM FILT RATE Estimated 94.5 mL/min (>60); POTASSIUM 4.4 mmol/L (3.5-5.1); PROTEIN TOTAL SERUM 6.7 g/dL (6.0-8.3)
[2016-07-13 07:23] LABS: CK TOTAL 139 IU/L (36-174); THEOPHYLLINE <2 ug/dL (10-20)
[2016-07-13 07:41] LABS: %MB 3.8 % (0.0-4.0); MB 5.3 ng/ml
[2016-07-14 05:52] LABS: HEMATOCRIT 43.4 % (38.0-50.0); HEMOGLOBIN 14.6 gm/dL (13.0-16.0); MEAN CELL VOLUME 84.4 FL (83-96); MEAN CORPUSCULAR HEMOGLOBIN 28.5 PG (28-34); MEAN CORPUSCULAR HGB CONC 33.7 g/dL (30-36); MEAN PLATELET VOLUME 9.1 FL (6.5-11.5); RED BLOOD COUNT 5.14 X10e (3.90-5.60); RED CELL DISTRIBUTION WIDTH 13.9 % (11.0-15.5); WHITE BLOOD COUNT 10.4 X10e3 (4.0-10.5)
[2016-07-14 07:04] LABS: CALCIUM SERUM 9.7 mg/dL (8.4-10.2); GLOM FILT RATE Estimated 83.2 mL/min (>60); POTASSIUM 3.8 mmol/L (3.5-5.1)
[2016-07-15 08:01] LABS: BUN/CREATININE RATIO 28.88; CREATININE SERUM 0.9 mg/dL (0.6-1.4); GLOM FILT RATE Estimated 94.5 mL/min (>60); POTASSIUM 4.1 mmol/L (3.5-5.1)
[2016-07-16 15:32] LABS: HEMATOCRIT 41.8 % (38.0-50.0); HEMOGLOBIN 13.9 gm/dL (13.0-16.0); MEAN CELL VOLUME 85.4 FL (83-96); MEAN CORPUSCULAR HEMOGLOBIN 28.4 PG (28-34); MEAN CORPUSCULAR HGB CONC 33.3 g/dL (30-36); MEAN PLATELET VOLUME 9.3 FL (6.5-11.5); RED BLOOD COUNT 4.9 X10e (3.90-5.60); RED CELL DISTRIBUTION WIDTH 13.8 % (11.0-15.5); WHITE BLOOD COUNT 12.4 X10e3 (4.0-10.5)
[2016-07-16 15:54] LABS: BUN/CREATININE RATIO 33.63; CALCIUM SERUM 9.4 mg/dL (8.4-10.2); CREATININE SERUM 1.1 mg/dL (0.6-1.4); GLOM FILT RATE Estimated 74.1 mL/min (>60); POTASSIUM 3.7 mmol/L (3.5-5.1)
[2016-07-16 15:57] LABS: PARTIAL THROMBOPLASTIN TIME 24.5 SECONDS (23.5-31.3); PROTHROMBIN TIME (PATIENT) 10.5 SECONDS (9.6-11.5)
[2016-07-16] MEDS ORDERED: SPIRIVA18 MCG INH (23:17)
[2016-07-16] MEDS ORDERED: ZETIA PO (23:18)
[2016-07-16] MEDS ORDERED: WELLBUTRIN XL150 M2 PO (23:18)
[2016-07-16] MEDS ORDERED: NICOTINE PATCH1 EAC1 TD (23:19)
[2016-07-16] MEDS ORDERED: NORVASC PO (23:21)
[2016-07-16] MEDS ORDERED: DULERA 200 MCG/13 GM INH (23:21)
[2016-07-16] MEDS ORDERED: LOPRESSOR PO (23:22)
[2016-07-16] MEDS ORDERED: LIPITOR80 MG PO (23:23)
[2016-07-16] MEDS ORDERED: CLOPIDOGREL75 MG PO (23:24)
[2016-07-16] MEDS ORDERED: ASPIRIN81 M2 PO (23:24)
== END 2016-07-17 00:36 | disposition home or self-care (01) | DRG 92 ==
LOC: CED 17:17 → C3A PCU 20:57 → CED 20:57 → CEDOF 20:57 → C3A PCU 21:20 → CEDOF 22:54 → C3A PCU 22:54
PROVIDERS: Emergency Medicine; Internal Medicine; Internal Medicine Cardiovascular Disease
PROC: B24BZZZ Ultrasonography of Heart with Aorta (ICD-10-PCS; 2016-07-13)
PROC: 4A023N7 Measurement of Cardiac Sampling and Pressure, Left Heart, Percutaneous Approach (ICD-10-PCS; principal; 2016-07-16)
PROC: B2111ZZ Fluoroscopy of Multiple Coronary Arteries using Low Osmolar Contrast (ICD-10-PCS; 2016-07-16)
PROC: B2151ZZ Fluoroscopy of Left Heart using Low Osmolar Contrast (ICD-10-PCS; 2016-07-16)
DX: I67.1 Cerebral aneurysm, nonruptured (principal); N39.0 Urinary tract infection, site not specified; I10 Essential (primary) hypertension; I65.22 Occlusion and stenosis of left carotid artery; I25.10 Atherosclerotic heart disease of native coronary artery without angina pectoris; Z95.5 Presence of coronary angioplasty implant and graft; E78.5 Hyperlipidemia, unspecified; F41.9 Anxiety disorder, unspecified; F17.210 Nicotine dependence, cigarettes, uncomplicated; J44.9 Chronic obstructive pulmonary disease, unspecified; R53.1 Weakness; R29.810 Facial weakness; R47.81 Slurred speech; E11.9 Type 2 diabetes mellitus without complications; K21.9 Gastro-esophageal reflux disease without esophagitis; M19.90 Unspecified osteoarthritis, unspecified site; E66.9 Obesity, unspecified; Z68.33 Body mass index [BMI] 33.0-33.9, adult; Z80.9 Family history of malignant neoplasm, unspecified; Z82.49 Family history of ischemic heart disease and other diseases of the circulatory system
CPT/HCPCS: 36415; 70450; 70496; 70498; 70544; 70549; 70553; 71010; 78452; 80048; 80053; 80061; 80076; 80198; 81003; 82550; 82553; 82947; 83036; 84443; 84484; 85025; 85027; 85610; 85730; 86140; 87086; 93005; 93017; 93306; 93880; 94640; 94760; 99285; A9500; A9577; C1769; C1887; C1894; J0360; J0696; J1644; J2250; J2785; J3010; Q9967